=== PATIENT | male | born 1990 | race Caucasian/White ===

== ENCOUNTER 2021-02-04 21:26 | Outpatient (REF) | payer OTHER, SELFPAY ==
[2021-02-04 22:18] LABS: Iron 77 ug/dL (65-175); Total Iron Binding Capacity 336 ug/dL (250-450); Transferrin Sat 23 % (20-55)
[2021-02-04 22:30] LABS: Ferritin 71 ng/mL (26-388)
== END 2021-02-04 21:27 | disposition home or self-care (01) ==
LOC: NCHCN 21:26
PROVIDERS: PCP Internal Medicine; Visit Provider Internal Medicine
DX: Z00.00 Encounter for general adult medical examination without abnormal findings (principal); Z83.2 Family history of diseases of the blood and blood-forming organs and certain disorders involving the immune mechanism; L21.9 Seborrheic dermatitis, unspecified
CPT/HCPCS: 82728; 83540; 83550